=== PATIENT | female | born 1980 | race American Indian/Alaskan Native ===

== ENCOUNTER 2021-08-10 08:55 | Emergency (ER) | payer BC ==
[2021-08-10 08:58] VITALS: BP 127/91
[2021-08-10] MEDS ORDERED: ACETAMINOPHEN 325 MG TAB PO ONE (09:10)
--- NOTE | 2021-08-10 09:13 | Emergency Department Report ---
ED Extremity Problem HPI - General Chief complaint: Extremity Problem,Nontraumatic Stated complaint: LEFT LEG PAIN Time Seen by Provider: 08/10/21 09:02 Source: patient Mode of arrival: Ambulatory Limitations: No Limitations - History of Present Illness Initial comments: 40-year-old female with a history of hyperlipidemia, and left lower extremity DVT which was diagnosed 3 years ago, no longer on Coumadin presents to the ER today with complaints of left posterior knee and left calf pain. Patient states that she drove 6 hours from [place] last night due to an emergency and it was a nonstop drive. She states that around 4 AM this morning she woke up with the pain behind her left knee and left calf. She states that it feels like "a charley horse", and similar to when she had a DVT 3 years ago. She denies any apparent swelling, or skin discoloration. She reports pain with movement of the knee and with ambulation. She has not taken anything for pain this morning. She reports no chest pain or shortness of breath or palpitations. She states that when she was diagnosed with a DVT in her left lower leg 3 years ago she was placed on Coumadin for 3 months. She states that she developed a DVT because she was on a long international flight to [place]. Complaint: extremity pain -: This morning - Related Data Previous Rx's Medication Instructions Recorded Last Taken Type Ibuprofen [Motrin] 600 mg PO Q8H PRN #30 tablet 08/10/21 Unknown Rx Allergies Allergy/AdvReac Type Severity Reaction Status Date / Time No Known Allergies Allergy Unverified 08/10/21 08:59 ED Review of Systems ROS: Stated complaint: LEFT LEG PAIN Other details as noted in HPI Comment: All other systems reviewed and negative Respiratory: denies: cough, shortness of breath, wheezing Cardiovascular: denies: chest pain, palpitations Musculoskeletal: arthralgia, myalgia Skin: denies: rash, lesions, change in color, change in hair/nails, pruritus Neurological: denies: headache, weakness, numbness, paresthesias, confusion, abnormal gait, vertigo Psychiatric: denies: anxiety, depression, auditory hallucinations, visual hallucinations, homicidal thoughts ED Past Medical Hx - Medications Home Medications: Home Medications Medication Instructions Recorded Confirmed Last Taken Type Ibuprofen [Motrin] 600 mg PO Q8H PRN #30 tablet 08/10/21 Unknown Rx ED Physical Exam - General Limitations: No Limitations General appearance: alert, in no apparent distress - Head Head exam: Present: atraumatic, normocephalic, normal inspection - Eye Eye exam: Present: normal appearance, PERRL, EOMI Pupils: Present: normal accommodation - ENT ENT exam: Present: normal exam, mucous membranes moist, TM's normal bilaterally - Respiratory Respiratory exam: Present: normal lung sounds bilaterally. Absent: respiratory distress - Cardiovascular Cardiovascular Exam: Present: regular rate, normal rhythm, normal heart sounds - Extremities Exam Extremities exam: Present: normal inspection, full ROM, normal capillary refill, calf tenderness (mild left), other (mild ttp posterior left knee ). Absent: pedal edema, joint swelling - Neurological Exam Neurological exam: Present: alert, oriented X3, CN II-XII intact, normal gait - Psychiatric Psychiatric exam: Present: normal affect, normal mood - Skin Skin exam: Present: intact ED Course Vital Signs 08/10/21 08/10/21 08:58 09:16 Temperature 98.1 F Pulse Rate 91 H Respiratory 18 16 Rate Blood Pressure 127/91 O2 Sat by Pulse 100 Oximetry ED Medical Decision Making - Radiology Data Radiology results: report reviewed Patient: ROCIO MELENDREZ MR#: [id number] : 1980 Acct:[id number] Age/Sex: 40 / F ADM Date: 08/10/21 Loc: ED Attending Dr: Ordering Physician: CATRACHO BARRERA Date of Service: 08/10/21 Procedure(s): VL venous duplex LE LT Accession Number(s): [id number] cc: CATRACHO BARRERA DUPLEX DOPPLER LOWER EXTREMITY VEINS, LEFT INDICATION / CLINICAL INFORMATION: LLE pain/hx dvt. TECHNIQUE: Duplex doppler imaging was performed through the veins of the left lower extremity using venous compression and other maneuvers. COMPARISON: None available. FINDINGS: LEFT COMMON FEMORAL VEIN: Negative. LEFT FEMORAL VEIN: Negative. LEFT POPLITEAL VEIN: Negative. LEFT CALF VEINS: Negative. ADDITIONAL FINDINGS: None. IMPRESSION: 1. No sonographic evidence for DVT in the left lower extremity. Signer Name: Linden Caicedo MD Signed: 08/10/2021 10:48 AM Workstation Name: [id number] Transcribed By: DB Dictated By: LINDEN CAICEDO MD Electronically Authenticated By: LINDEN CAICEDO MD Signed Date/Time: 08/10/21 1048 DD/ 1034 TD/TT: - Medical Decision Making Venous doppler negative. Discussed results with patient. She has no chest pain or SOB. Her VS are stable. Extremity exam does not suggest leg cellulitis, compartment syndrome, nor acute arterial occlusion or any other emergent condition warranting any additional testing at this time. Discussed results with patient. Discussed suspected diagnosis and treatment plan with patient. Recommend follow-up with her PCP on return to [place]. Patient expressed understanding and agree with plan. Patient stable at time of discharge. Critical care attestation.: If time is entered above; I have spent that time in minutes in the direct care of this critically ill patient, excluding procedure time. ED Disposition Clinical Impression: Leg cramps Disposition: 01 HOME / SELF CARE / HOMELESS Is pt being admited?: No Does the pt Need Aspirin: No Condition: Stable Instructions: Leg Cramps Additional Instructions: I recommend taking the motrin as prescribed. Elevate your leg as often as possible. Follow up om 1 week with your PCP on return to [place]. Return to the ER if any of your symptoms changes or worsens in any way. Prescriptions: Ibuprofen [Motrin] 600 mg PO Q8H PRN #30 tablet PRN Reason: Pain Referrals: LEONELA WYLIE,EVELYN [Other] - 3-5 Days Time of Disposition: 11:19
--- NOTE | 2021-08-10 10:53 | Vascular Lab Report ---
DUPLEX DOPPLER LOWER EXTREMITY VEINS, LEFT INDICATION / CLINICAL INFORMATION: LLE pain/hx dvt. TECHNIQUE: Duplex doppler imaging was performed through the veins of the left lower extremity using v enous compression and other maneuvers. COMPARISON: None available. FINDINGS: LEFT COMMON FEMORAL VEIN: Negative. LEFT FEMORAL VEIN: Negative. LEFT POPLITEAL VEIN: Negative. LEFT CALF VEINS: Negative. ADDITIONAL FINDINGS: None. IMPRESSION: 1. No sonographic evidence for DVT in the left lower extremity. Signer Name: Linden Caicedo MD Signed: 08/10/2021 10:48 AM Workstation Name: [id number]
== END 2021-08-10 11:21 | disposition home or self-care (01) ==
LOC: ED 08:55
DX: R25.2 Cramp and spasm (principal)
CPT/HCPCS: 99283